=== PATIENT | male | born 1960 | race Caucasian/White ===

== ENCOUNTER 2022-12-26 07:24 | Emergency (ER) | payer BC ==
[2022-12-26 08:01] LABS: Absolute Neutrophil Ct (ANC) 6.88 x10^3/uL (1.4-6.9); BASOPHIL % 0.2 % (0.0-0.4); Basophil (Absolute #) 0.02 x10^3/uL (0-0.4); Eosinophil % 0.4 % (0.00-5.0); Eosinophil (Absolute #) 0.04 x10^3/uL (0-0.5); Hematocrit 44.7 % (42-50); Hemoglobin 14.8 g/dL (12.5-18.0); IMMATURE GRAN # 0.02 x10^3u/L (0.00-0.03); IMMATURE GRAN % 0.2 % (0.00-0.4); Lymphocyte (Absolute #) 2.21 x10^3/uL (1.0-4.6); Lymphocytes % 22.6 % (24.0-44.0); Mean Cell Volume 87.8 fL (78-100); Mean Corpuscular Hemoglobin 29.1 pg (26-32); Mean Corpuscular Hgb Concent. 33.1 g/dL (32-36); Mean Platelet Volume 9.5 fL (7.5-11.0); Monocyte (Absolute #) 0.61 x10^3/uL (0.0-1.3); Monocytes % 6.2 % (0.0-12.0); Neutrophil % 70.4 % (36.0-66.0); Platelet Count 218 x10^3/uL (150-450); Red Blood Count 5.09 x10^6/uL (4.1-5.6); Red Cell Distribution Width 12.8 % (11.5-14.0); White Blood Count 9.8 x10^3/uL (4.0-10.5)
[2022-12-26] MEDS ORDERED: Sodium Chloride 0.9% 1000 ML 1,000 ML ONE (08:01)
[2022-12-26 08:02] VITALS: TEMP 97.8
[2022-12-26] MEDS: Sodium Chloride 0.9% 1000 ML 1,000 ML IV STA (08:02)
[2022-12-26 08:40] LABS: ALBUMIN 4.9 g/dL (3.5-5.0); ALKALINE PHOSPHATASE 78 U/L (38-126); ANION GAP 14.9 MEQ/L (5-15); BLOOD UREA NITROGEN 16 mg/dL (9-20); CHLORIDE 108 mmol/L (98-107); Calcium 9.6 mg/dL (8.4-10.2); Carbon Dioxide 18 mmol/L (22-30); Creatinine 1 0.97 mg/dL (0.66-1.25); EST GLOMERULAR FILTRATION RATE 88.3 ML/MIN; Glucose 144 mg/dL (74-106); LIPASE 185 U/L (23-300); Potassium 3.8 mmol/L (3.5-5.1); SGOT/AST 31 U/L (17-59); SGPT/ALT 36 U/L (0-50); SODIUM 138 mmol/L (137-145); TROPONIN < 0.012 ng/mL (0.000-0.034); Total Protein 8.3 g/dL (6.3-8.2)
--- NOTE | 2022-12-26 09:10 | XRAY ---
Indication: Abdominal distention. Multiple contiguous axial images obtained through the abdomen and pelvis without contrast. Comparison: None Lung bases clear. Heart not enlarged. Stomach mildly fluid distended. Abnormal fluid and air distended small/large bowel loops throughout up to 4.5 cm diameter with fluid leveling. Transition point proximal descending colon with distal colon appearing decompressed. Colonic obstruction is of primary concern. Intact sigmoid anastomosis. Minimal scattered descending and sigmoid diverticulosis without diverticulitis. 1.5 cm right mid renal exophytic cyst. No free fluid/air. Remaining liver, gallbladder, pancreas, spleen, adrenal glands, kidneys, ureters, and bladder are unremarkable for noncontrast exam. Mild scattered aortoiliac calcifications without AAA. Osseous structures intact with minimal degenerative changes throughout the spine. Impression: 1. Diffuse fluid and air distended small/large bowel loops with fluid leveling. Transition point proximal descending colon concerning for obstruction. No free fluid/air. 2. Chronic findings including colonic diverticulosis, right renal cyst, arteriosclerotic disease, and degenerative spondylosis.
--- NOTE | 2022-12-26 09:48 | ERPHSYRPT ---
- History of Present Illness Time Seen by Provider: 12/26/22 07:30 Historian: patient Exam Limitations: no limitations Patient Subjective Stated Complaint: C/O loose stools; describes them as "straight water". C/O nausea without vomiting. Denies any pain but states his abdomen is distended Triage Nursing Assessment: Patient ambulated back to ER without difficulties. NO SOB. He is alert and oriented. Abdomen is firm and distended. No bowel sounds heard in right quads and occassional "drip" heard in the left quads. Patient states he feels and hears his belly gurrgle at times. Physician History: Patient is a 62-year-old male presents to our ED for evaluation of abdominal fullness abdominal distention nausea no vomiting. Symptoms started approximately 4 days ago. Symptoms have been progressive. Patient states that he has frequent loose watery like stools. No fever. No trauma. No weakness. Symptoms are moderate in intensity. No specific worsening or improving factors. Patient states he had a partial bowel resection approximately 20 years ago. Since then he has been well. Patient is never experienced a bowel obstruction but feels he is experiencing one now. Patient voices no other complaints or concerns at this time. Portions of this note were created with voice recognition technology. There may be grammatical, spelling, punctuation or sound alike errors Timing/Duration: day(s) (4 days) Activities at Onset: none Quality: fullness Abdominal Pain Onset Location: generalized abdomen Pain Radiation: no radiation Severity of Pain-Max: moderate Severity of Pain-Current: mild Modifying Factors: Improves With: nothing Associated Symptoms: diarrhea (Watery stools), nausea Previous symptoms: no prior history Allergies/Adverse Reactions: No Known Drug Allergies Allergy (Verified 12/26/22 07:40) Home Medications: Amlodipine Besylate/Benazepril [Amlodipine-Benazepril 10-40 mg] 1 cap PO DAILY 12/26/22 [History] Atorvastatin Calcium [Lipitor] 1 tab PO HS 12/26/22 [History] Dicyclomine HCl 1 cap PO DAILY 12/26/22 [History] Finasteride 5 mg [Proscar 5 MG] 1 tab PO DAILY 12/26/22 [History] Losartan Potassium [Cozaar] 1 tab PO DAILY 12/26/22 [History] Oxybutynin Chloride Xl 5 mg [Ditropan XL 5 MG] 1 tab PO DAILY 12/26/22 [History] Semaglutide [Ozempic] 1 mg SQ WEEKLY 12/26/22 [History] Tamsulosin HCl 0.4 mg [Flomax 0.4 MG] 1 cap PO DAILY 12/26/22 [History] Hx Tetanus, Diphtheria Vaccination/Date Given: Yes Hx Influenza Vaccination/Date Given: Yes Hx Pneumococcal Vaccination/Date Given: No Immunizations Up to Date: Yes Travel Risk - International Travel Have you traveled outside of the country in past 3 weeks: No - Coronavirus Screening Are you exhibiting any of the following symptoms?: No Close contact with a COVID-19 positive Pt in past 14-21 Days: No - Vaccine Status Have you recieved a Covid-19 vaccination: Yes 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 - Review of Systems Constitutional: No Symptoms, No Fever, No Chills Eyes: No Symptoms Ears, Nose, & Throat: No Symptoms Respiratory: No Symptoms, No Cough, No Dyspnea Cardiac: No Symptoms, No Chest Pain, No Edema, No Syncope Abdominal/Gastrointestinal: No Symptoms, No Abdominal Pain, No Nausea, No Vomiting, No Diarrhea Genitourinary Symptoms: No Symptoms, No Dysuria Musculoskeletal: No Symptoms, No Back Pain, No Neck Pain Skin: No Symptoms, No Rash Neurological: No Symptoms, No Dizziness, No Focal Weakness, No Sensory Changes Psychological: No Symptoms Endocrine: No Symptoms Hematologic/Lymphatic: No Symptoms Immunological/Allergic: No Symptoms All Other Systems: Reviewed and Negative - Past Medical History Pertinent Past Medical History: Yes Neurological History: No Pertinent History ENT History: No Pertinent History Cardiac History: High Cholesterol, Hypertension Respiratory History: No Pertinent History Endocrine Medical History: Diabetes Type II Musculoskeletal History: Fractures GI Medical History: Diverticulitis, GERD History: No Pertinent History Psycho-Social History: No Pertinent History Male Reproductive Disorders: Prostate Problems - Past Surgical History Past Surgical History: Yes Neuro Surgical History: No Pertinent History Cardiac: No Pertinent History Respiratory: No Pertinent History Gastrointestinal: Appendectomy, Colon Resection, Hernia Repair Genitourinary: No Pertinent History Musculoskeletal: No Pertinent History Male Surgical History: No Pertinent History Other Surgical History: reflux procedure - Social History Smoking Status: Never smoker Exposure to second hand smoke: No Drug Use: none Patient Lives Alone: No () - Nursing Vital Signs Nursing Vital Signs: Initial Vital Signs Temperature 97.8 F 12/26/22 07:25 Pulse Rate 94 H 12/26/22 07:25 Respiratory Rate 17 12/26/22 07:25 Blood Pressure 142/88 12/26/22 07:25 O2 Sat by Pulse Oximetry 97 12/26/22 07:25 Pain Scale Pain Intensity 0 - Physical Exam General Appearance: no apparent distress, alert Eye Exam: PERRL/EOMI, eyes nml inspection Ears, Nose, Throat Exam: normal ENT inspection, pharynx normal, moist mucous membranes Neck Exam: normal inspection, non-tender, supple, full range of motion Respiratory Exam: normal breath sounds, lungs clear, airway intact, No respiratory distress Cardiovascular Exam: regular rate/rhythm, normal heart sounds, normal peripheral pulses Gastrointestinal/Abdomen Exam: soft, distention, other (Hyperactive bowel sounds), No tenderness, No mass, No guarding Back Exam: normal inspection, normal range of motion, No CVA tenderness, No vertebral tenderness Extremity Exam: normal inspection, normal range of motion, pelvis stable Neurologic Exam: alert, oriented x 3, cooperative, normal mood/affect, nml cerebellar function, sensation nml, No motor deficits Skin Exam: normal color, warm, dry SpO2 Interpretation: normal SpO2: 95 O2 Delivery: Room Air - Course Nursing assessment & vital signs reviewed: Yes - CT Exams Abdomen/Pelvis CT Interpretation: Tele-radiologist Report (Large bowel obstruction with transition point at the proximal descending colon. 1.5 cm right renal exophytic lesion, diverticulosis. No diverticulitis. Atherosclerotic disease and degenerative spondylosis) Ordered Tests: Active Orders 24 hr Category Date Time Status IV Insertion STAT Care 12/26/22 07:45 Active ABDOMEN AND PELVIS W/0 CONTRAS [CT] Stat Exams 12/26/22 07:44 Completed CBC W DIFF Stat Lab 12/26/22 07:55 Completed CMP Stat Lab 12/26/22 07:55 Completed CULTURE,URINE Stat Lab 12/26/22 10:18 Received LIPASE Stat Lab 12/26/22 07:55 Completed TROPONIN Q4H Lab 12/26/22 07:55 Completed TROPONIN Q4H Lab 12/26/22 11:45 Ordered TROPONIN Q4H Lab 12/26/22 15:45 Ordered UA W/RFX UR CULTURE Stat Lab 12/26/22 10:18 Completed Medication Summary Discontinued Medications Generic Name Dose Route Start Last Admin Trade Name Luis Fernando PRN Reason Stop Dose Admin Sodium Chloride 1,000 mls @ 999 mls/hr 12/26/22 07:45 12/26/22 09:11 Sodium Chloride 0.9% 1000 Ml IV 12/26/22 08:45 Infused .Q1H1M STA Infusion Sodium Chloride Confirm 12/26/22 08:01 Sodium Chloride 0.9% 1000 Ml Administered 12/26/22 08:02 Dose 1,000 mls @ ud .ROUTE .STK-MED ONE Lab/Rad Data: Laboratory Result Diagrams 12/26/22 07:55 12/26/22 07:55 Laboratory Results 12/26/22 12/26/22 12/26/22 Range/Units 10:18 07:55 07:55 WBC 9.8 (4.0-10.5) x10^3/uL RBC 5.09 (4.1-5.6) x10^6/uL Hgb 14.8 (12.5-18.0) g/dL Hct 44.7 (42-50) % MCV 87.8 (78-100) fL MCH 29.1 (26-32) pg MCHC 33.1 (32-36) g/dL RDW 12.8 (11.5-14.0) % Plt Count 218 (150-450) x10^3/uL MPV 9.5 (7.5-11.0) fL Gran % 70.4 H (36.0-66.0) % Immature Gran % (Auto) 0.2 (0.00-0.4) % Nucleat RBC Rel Count 0.0 (0.00-0.1) % Eos # (Auto) 0.04 (0-0.5) x10^3/uL Immature Gran # (Auto) 0.02 (0.00-0.03) x10^3u/L Absolute Lymphs (auto) 2.21 (1.0-4.6) x10^3/uL Absolute Monos (auto) 0.61 (0.0-1.3) x10^3/uL Absolute Nucleated RBC 0.00 (0.00-0.01) x10^3u/L Lymphocytes % 22.6 L (24.0-44.0) % Monocytes % 6.2 (0.0-12.0) % Eosinophils % 0.4 (0.00-5.0) % Basophils % 0.2 (0.0-0.4) % Absolute Granulocytes 6.88 (1.4-6.9) x10^3/uL Basophils # 0.02 (0-0.4) x10^3/uL Sodium 138 (137-145) mmol/L Potassium 3.8 (3.5-5.1) mmol/L Chloride 108 H (98-107) mmol/L Carbon Dioxide 18 L (22-30) mmol/L Anion Gap 14.9 (5-15) MEQ/L BUN 16 (9-20) mg/dL Creatinine 0.97 (0.66-1.25) mg/dL Estimated GFR 88.3 ML/MIN Glucose 144 H (74-106) mg/dL Calcium 9.6 (8.4-10.2) mg/dL Total Bilirubin 0.50 (0.2-1.3) mg/dL AST 31 (17-59) U/L ALT 36 (0-50) U/L Alkaline Phosphatase 78 (38-126) U/L Troponin I < 0.012 (0.000-0.034) ng/mL Serum Total Protein 8.3 H (6.3-8.2) g/dL Albumin 4.9 (3.5-5.0) g/dL Lipase 185 (23-300) U/L Urine Color Dark Yellow (Yellow) Urine Appearance Cloudy A (Clear) Urine pH 5.5 (4.6-8.0) Ur Specific Hoffman >=1.030 A (1.005-1.030) Urine Protein 100 A (Negative) Urine Glucose (UA) Negative (Negative) mg/dL Urine Ketones Trace A (Negative) Urine Blood Negative (Negative) Urine Nitrite Negative (Negative) Urine Bilirubin Negative (Negative) Urine Urobilinogen 0.2 (0.2) mg/dL Ur Leukocyte Esterase Negative (Negative) U Hyaline Cast (Auto) 11-20 (0-2) /LPF Urine Microscopic RBC 3-5 (0-5) /HPF Urine Microscopic WBC 0-2 (0-5) /HPF Ur Epithelial Cells None Seen (None Seen) /HPF Calcium Oxalate Crystal 6-10 A (None Seen) /HPF Urine Bacteria Many A (None Seen) /HPF Granular Casts 3-5 A (None Seen) /LPF Urine Culture Reflexed YES (NO) - Progress Progress: improved Progress Note: Case discussed with at 9:50 AM. He advised transfer to an outside facility with GI availability. I went to speak with the patient. He is currently occupied in the restroom and states that he would have to think about whether or not he wants to be transferred. 12/26/22 09:54 The findings discussed with patient. He understands the indication for transfer. Patient states that he prefers not to be transferred via ambulance. Patient prefers that his drive him to another hospital. We cannot place an NG tube as patient will be driving himself. Patient will leave AMA instead. Patient is of sound mind. Patient is appropriate to make informed and independent medical decisions. Patient understands that leaving AGAINST MEDICAL ADVICE can result in delayed diagnosis, increased risk of morbidity, mortality, short and long-term disability including . In spite of these risks, ahsan mas has decided to leave AGAINST MEDICAL ADVICE. Patient understands that he may return to our ED at any point if he reconsiders. Patient agrees to follow- up with his primary care doctor within 48 hours for reevaluation. Patient voices no other complaints or concerns at this time. We will release patient AGAINST MEDICAL ADVICE per their request. Patient is a 62-year-old male presents to our ED for evaluation of abdominal distention and loose watery stools. Some nausea no vomiting. Physical exam reveals a distended abdomen. No peritoneal signs. Hyperactive bowel sounds. CT scan shows a obstruction at the level of the proximal descending colon. 12/26/22 10:23 Patient is change his mind and decided to transfer via ambulance. He will no longer be leaving AMA. Complexity of problem addressed is high, threat to bodily function. Complexity of data reviewed and analyzed is extensive. Test ordered test reviewed. Results analyzed and correlated clinically with history and physical examination. Management discussed with on-call general surgeon who advises transfer to higher level of care. Risk of complication and or risk of morbidity/mortality of patient management is high. Patient requires hospitalization/transfer to higher level of care Vital stable. Time spent to transfer patient is approximately 20 minutes. Plan of care established for shared decision making. No social determinants of health present impede follow-up Portions of this note were created with voice recognition technology. There may be grammatical, spelling, punctuation or sound alike errors 12/26/22 10:[address] Diaz ER physician at [facility] who accepts transfer at 11:34 AM. Patient agrees to transfer to [facility] for further evaluation and treatment. Portions of this note were created with voice recognition technology. There may be grammatical, spelling, punctuation or sound alike errors 12/26/22 11:34 Discussed with DrDulce Maria: [place] Will see patient in: office Counseled pt/family regarding: lab results, diagnosis, rad results - Departure Departure Disposition: Transfer Clinical Impression: Abdominal distention, Large bowel obstruction, Diverticulosis, Right renal exophytic lesion, Atherosclerotic cardiovascular disease, Arthritis of spine Condition: Stable Critical Care Time: No Referrals: IVY TRAVIS MD [Primary Care Provider] - Follow up/PCP as directed Additional Instructions: Discharge/Care Plan RINKUZACHARYTIFFANY Blanco was seen on 12/26/22 in the Emergency Room. The patient was counseled regarding Diagnosis,Lab results, Imaging studies, need for follow up and when to return to the Emergency Room. Prescriptions given: Discharge Note I have spoken with the patient and/or caregivers. I have explained the patient's condition, diagnosis and treatment plan based on the information available to me at this time. I have answered the patient's and/or caregiver's questions and addressed any concerns. The patient and/or caregivers have as good understanding of the patient's diagnosis, condition and treatment plan as can be expected at this point. The vital signs have been stable. The patient's condition is stable and appropriate for discharge from the emergency department. The patient will pursue further outpatient evaluation with the primary care phys ician or other designated or consulting physician as outlined in the discharge instructions. The patient and/or caregivers are agreeable to this plan of care and follow-up instructions have been explained in detail. The patient and/or caregivers have received these instruction. The patient/and or caregivers are aware that any significant change in condition or worsening of symptoms should prompt an immediate return to this or the closest emergency department or call 911.
[2022-12-26 10:43] LABS: Appearance Cloudy (Clear); Bilirubin Negative (Negative); Blood Negative (Negative); Epithelial Cells None Seen /HPF (None Seen); Glucose, Urine Negative (Negative); Ketones Trace (Negative); Leukocyte Esterase Negative (Negative); Nitrite Negative (Negative); Ph 5.5 (4.6-8.0); Protein,Urine Dip 100 (Negative); Specific Gravity >=1.030 (1.005-1.030); Urobilinogen 0.2 mg/dL (0.2); WBC 0-2 /HPF (0-5)
[2022-12-26 10:49] LABS: ADD URINE CULTURE? YES (NO); Bacteria Many /HPF (None Seen)
[2022-12-26 11:55] VITALS: PULSE 107; RESP 20; O2SAT 96
[2022-12-26 12:15] VITALS: BP 138/87
== END 2022-12-26 12:15 | disposition short-term general hospital (02) ==
LOC: ED 07:24
DX: K56.609 Unspecified intestinal obstruction, unspecified as to partial versus complete obstruction (principal); R14.0 Abdominal distension (gaseous); K57.90 Diverticulosis of intestine, part unspecified, without perforation or abscess without bleeding; N28.89 Other specified disorders of kidney and ureter; I25.10 Atherosclerotic heart disease of native coronary artery without angina pectoris; M47.9 Spondylosis, unspecified; R11.0 Nausea; E78.5 Hyperlipidemia, unspecified; I10 Essential (primary) hypertension; E11.9 Type 2 diabetes mellitus without complications; Z79.85 Long-term (current) use of injectable non-insulin antidiabetic drugs; Z79.899 Other long term (current) drug therapy
CPT/HCPCS: 36000; 36415; 74176; 80053; 81001; 83690; 84484; 85025; 87086; 96360; 99285

== ENCOUNTER 2023-04-30 08:34 | Day surgery (SDC) | payer BC ==
--- NOTE | 2023-04-30 08:00 | HP ---
DATE OF SURGERY: 04/30/2023 HISTORY OF PRESENT ILLNESS: The patient is a 62-year-old with colon resection for diverticulitis and fistula back in 2002 in [place] when he had some hernia and mesh placed. He had some reflux, had some bowel issues for a long time, gastritis and TB. The patient was at [facility] and released. The patient was back to his normal three to four loose stools a day. Last colonoscopy two or three years ago in [place]. No bloody stools. Referred for colonoscopy. PAST MEDICAL HISTORY: Diabetes, reflux, diverticular disease in the past. PAST SURGICAL HISTORY: Appendectomy. Hernia repair. Colon resection. Tonsillectomy. Colonoscopy in the past. MEDICATIONS: Atorvastatin, losartan, oxybutynin, semaglutide, finasteride, dicyclomine, cholecalciferol, amlodipine, tamsulosin. ALLERGIES: NKDA. FAMILY HISTORY: Colon cancer. SOCIAL HISTORY: No smoking or alcohol abuse. REVIEW OF SYSTEMS: Twelve systems reviewed. No chest pain or palpitations. Other systems negative or noncontributory as above and per preadmission questionnaire. PHYSICAL EXAMINATION: Height 5 feet, 7 inches. BMI 33. GENERAL: No acute distress. HEENT: Sclerae nonicteric. EOMI. Oral mucous membranes moist. NECK: No JVD. CHEST: Equal excursion, nonlabored breathing. CVS: Regular rate and rhythm. ABDOMEN: Soft, nontender. . No peritoneal signs. EXTREMITIES: No cyanosis or edema. NEURO: Alert, oriented, moving extremities symmetrically. RECTAL: Deferred timed to endoscopy exam. PSYCH: Appropriate mood and affect. SKIN: Dry. IMPRESSION: Some recent abdominal aches and pains improved question whether he had some enteritis or partial obstruction. He has prior history of polyps. He is in need of follow up colonoscopy. He was shown the risk sheet, explained the procedure in detail but not limited to bleeding or infection, risk of bowel injury or perforation possibly requiring further procedure, risk of missed or nondiagnosis or incomplete exam possibly requiring barium enema, other studies or procedures, general risk of anesthesia or sedation, risk of bowel prep but not limited to, consent obtained. Will proceed with outpatient follow up screening colonoscopy under MAC anesthesia. Otherwise, continue medications for his reflux, hypertension, diabetes and hyperlipidemia.
[2023-04-30] MEDS ORDERED: Lactated Ringers 1,000 ML IV ONE (08:42)
[2023-04-30] MEDS: Lactated Ringers 1,000 ML IV SCH (08:44)
[2023-04-30 08:55] VITALS: RESP 16
[2023-04-30] MEDS ORDERED: DIPRIVAN 200 MG/20 ML IV ONE ×3 (10:24→11:09)
[2023-04-30] MEDS ORDERED: Versed 2 MG/2 ML Injection ONE (10:24)
[2023-04-30 12:04] VITALS: BP 135/83; PULSE 63; TEMP 96.1; O2SAT 97
--- NOTE | 2023-05-01 08:05 | OP ---
SURGERY DATE/TIME: 04/30/2023 1047 PREOPERATIVE DIAGNOSIS: History of polyps, prior history of diverticular disease resection, need follow up screening colonoscopy. POSTOPERATIVE DIAGNOSES: 1) Mild diverticulosis. 2) Colon polyps. PROCEDURES: 1) Colonoscopy with hot snare polypectomy cecal polyp. 2) Hot snare polypectomy piecemeal polypectomy transverse colon polyp with injection of lift technique. 3) Tattoo of site transverse colon. 4) Hemoclip application post polypectomy transverse colon. 5) Hot biopsy polypectomy small early rectal polyp versus hyperplastic lesion. 6) ASA Class II. SURGEON: Dr. Reid Mi M.D. ANESTHESIA: MAC. ESTIMATED BLOOD LOSS: Minimal. INDICATIONS: As noted above. Risks and benefits explained in detail but not limited to and consent obtained. DESCRIPTION OF PROCEDURE AND FINDINGS: The patient is taken to the endoscopy room. MAC anesthesia induced. After official time out and no disagreement with planned procedure, digital rectal exam did not reveal any rectal masses. Video colonoscope inserted and passed up through the tortuous sigmoid, descending, transverse and ascending colon around to the cecum. Appendiceal orifice and ileocecal valve well visualized. Prep overall was fair. Photo documented the appendiceal orifice and valve area. There was a small polyp in the cecum about 3 to 3.5 mm removed with hot snare polypectomy with brief bursts of cautery elevating well away from the bowel wall. Good hemostasis noted. The scope is then pulled back. In the transverse colon, there were some more semi-pedunculated polyp. There was almost like two polyps next to each other that was about maybe 1.3 cm or 12 mm. This required lift technique. The lift agent was carefully injected submucosal underneath it elevating the polyp upward and it was removed with hot snare polypectomy with brief bursts of cautery and a snare two separate pieces piecemeal. There did not appear to be residual viable polyps remaining. There was a little bit of ooze at the base requiring Hemoclip application and a couple of clips were placed. It appeared to have good hemostasis at this point. The family was later counseled on the risk of bleeding and to avoid any nonsteroidals, aspirin or thinners for the next couple of weeks. Otherwise, some ink spot tattoo was injected 1 cc under submucosa in a marked location. The scope was carefully withdrawn. There were a few small diverticula in the left colon. Scope pulled back to the rectum. A small 2 mm early polyp versus hyperplastic lesion removed with hot biopsy polypectomy. Good hemostasis noted. Withdrawal time had been at least 16 or 17 minutes. Findings discussed with the family and apprised them of the risk of bleeding given the polypectomy site. Otherwise, I will see him back in the office next week. Given this piecemeal polypectomy and flatter polyp, he will need a shorter term follow up maybe in a year depending on path results.
== END 2023-04-30 12:15 | disposition home or self-care (01) ==
LOC: SDC 08:34
PROVIDERS: ATTEND Surgery
DX: Z12.11 Encounter for screening for malignant neoplasm of colon (principal); Z09 Encounter for follow-up examination after completed treatment for conditions other than malignant neoplasm; Z86.010 Personal history of colon polyps; Z87.19 Personal history of other diseases of the digestive system; Z80.0 Family history of malignant neoplasm of digestive organs; E11.9 Type 2 diabetes mellitus without complications; K57.30 Diverticulosis of large intestine without perforation or abscess without bleeding; D12.7 Benign neoplasm of rectosigmoid junction; D12.0 Benign neoplasm of cecum; D12.3 Benign neoplasm of transverse colon
CPT/HCPCS: 82947; J2250; J2704